=== PATIENT | male | born 1980 | race Caucasian/White ===

== ENCOUNTER 2020-12-31 17:12 | Outpatient (CLI) | payer MEDICARE, MEDICAID, SELFPAY ==
[2020-12-31 17:33] VITALS: BP 163/91; PULSE 93; RESP 16; TEMP 36.9; O2SAT 98; BMI 34.0
[2020-12-31] MEDS: 0.9% Saline Lock 10 ML Syringe IV (17:51)
[2020-12-31 18:30] VITALS: BP 119/71; PULSE 63; RESP 16; TEMP 36.9; O2SAT 98
[2020-12-31 19:21] VITALS: BP 116/63; PULSE 96; RESP 16; TEMP 36.9; O2SAT 96
== END 2020-12-31 19:24 | disposition home or self-care (01) ==
LOC: MS3OUT 17:13 → MS3 17:36
PROVIDERS: Referring Provider Nurse Practitioner Adult Health; Visit Provider Nurse Practitioner Adult Health
DX: Z23 Encounter for immunization (principal); U07.1 COVID-19
CPT/HCPCS: 87635; J7050; M0245; Q0245; U0005; A4216; U0003

== ENCOUNTER → 2020-12-31 | Outpatient (CLI) | payer MEDICARE, MEDICAID, SELFPAY | END | disposition home or self-care (01) | PROVIDERS: Referring Provider Physician Assistant Surgical; Visit Provider Physician Assistant Surgical | DX: U07.1 COVID-19 (principal) | CPT/HCPCS: 87635; U0005; U0003 ==